=== PATIENT | female | born 1995 | race African-American/Black ===

== ENCOUNTER 2017-02-26 15:07 | Emergency (ER) | payer SELFPAY ==
[~2017-02-26] VITALS: Ht 162.6 cm; Wt 86.3 kg
[2017-02-26] MEDS ORDERED: NAPROSYN500 MG PO (16:34)
[2017-02-26] MEDS ORDERED: FLEXERIL5 MG PO (16:34)
[2017-02-26 16:47] VITALS: BP 120/63
== END 2017-02-26 16:50 | disposition home or self-care (01) ==
LOC: EME 15:07 → EDBD 15:07 → EME 16:50
DX: S29.011A Strain of muscle and tendon of front wall of thorax, initial encounter (principal); X50.0XXA Overexertion from strenuous movement or load, initial encounter; Y99.0 Civilian activity done for income or pay
CPT/HCPCS: 93005; 99281; 99284